=== PATIENT | male | born 1965 | race Hispanic/Latino ===

== ENCOUNTER → 2021-11-21 | Outpatient (CLI) | payer SELFPAY | LOC: CT 16:00 | PROVIDERS: ATTEND Family Medicine | DX: S16.1XXA Strain of muscle, fascia and tendon at neck level, initial encounter (principal) | CPT/HCPCS: 70450 ==

== ENCOUNTER → 2021-12-06 | Outpatient (CLI) | payer OTHER | LOC: MRI 12:32 | PROVIDERS: ATTEND Family Medicine | DX: S39.012D Strain of muscle, fascia and tendon of lower back, subsequent encounter (principal) | CPT/HCPCS: 72148 ==